=== PATIENT | male | born 1960 | race Caucasian/White ===

== ENCOUNTER 2020-11-07 11:50 | Emergency (ER) | payer MEDICAID, SELFPAY ==
--- NOTE | ~2020-11-07 | CT_ITS ---
EXAMINATION: CT ABDOMEN AND PELVIS WITH CONTRAST CLINICAL INFORMATION: Right upper quadrant and right lower quadrant pain COMPARISON: None TECHNIQUE: Multidetector volumetric images were obtained from the superior aspect of the liver through the pubic symphysis following administration 85 mL of Omnipaque 350 intravenous contrast. Sagittal and coronal reformatted images were obtained on the technologist's workstation. Oral contrast: None This CT examination was performed using dose optimization techniques as appropriate, variously including the following: *Automated exposure control *Adjustment of mA and/or kV according to patient size (this includes techniques or standardized protocols for targeted exams where dose is matched to indication/reason for exam; i.e. extremities or head) *Use of iterative reconstruction technique DLP: 559 mGy-cm FINDINGS: LUNG BASES: The visualized lung bases are unremarkable. LIVER, GALLBLADDER, AND BILIARY TREE: The liver has a lobular contour with the appearance of hepatic cirrhosis. There are some regions of diminished density present which could represent regions of scarring however lesions of other etiology not excluded. There is also noted to be a large soft tissue mass involving the left lobe measuring approximately 9.3 x 8.8 cm in size and in a patient with cirrhosis. Recent suspicious for this to represent hepatocellular carcinoma and other regions could represent multifocal disease. MRI or ultrasound would be of help in further evaluation of this finding as this could possibly represent a large hemangioma. Cholelithiasis is present. There is fluid around the gallbladder as well as gallbladder wall thickening however there is also some free fluid seen around the liver and in the pelvis which may be related to cirrhosis. Acute cholecystitis cannot be excluded on this imaging study. PANCREAS: Unremarkable. SPLEEN: Spleen is prominent at approximately 13 cm in vertical length. ADRENAL GLANDS: Unremarkable. KIDNEYS AND URETERS: The kidneys are normal in size, shape, and attenuation. No hydronephrosis, hydroureter, or calculi seen. No perinephric stranding. There is a subcentimeter cyst seen lower pole of the left kidney. BLADDER: Unremarkable. GASTROINTESTINAL TRACT: No free air is identified. There is a small amount of free fluid seen. No dilated loops of large or small bowel are evident. There is mild sigmoid diverticulosis without evidence of acute diverticulitis. The appendix appears unremarkable with gas within it. ABDOMINAL WALL: No significant hernia is appreciated. LYMPH NODES: There are numerous prominent mesenteric lymph nodes present. These measure up to approximately 9 mm in short axis. VASCULAR: Portal vein is patent. No abdominal aortic aneurysm. Portal varices are present PELVIC VISCERA: Prostate gland is enlarged. OSSEOUS STRUCTURES: No suspicious destructive bony lesions identified. Degenerative disc disease L5-S1. CT/CT abdomen pelvis w con IMPRESSION: Hepatic cirrhosis with evidence of portal hypertension. Hepatic mass as well as other regions of nonmass increased in low density. Above findings could be related to multifocal hepatocellular carcinoma. Fluid around the gallbladder with question gallbladder wall thickening but in a cirrhotic patient with some ascites present. Its difficult to tell whether this may be related to acute cholecystitis or be cirrhosis. Cholelithiasis is present. Splenomegaly.
[2020-11-07 12:01] VITALS: BP 164/90; PULSE 86; RESP 18; TEMP 36.9; O2SAT 94; BMI 25.8
--- NOTE | 2020-11-07 12:26 | ECG_ITS ---
Test Reason : EPIGASTRIC PAIN Blood Pressure : / mmHG Vent. Rate : 070 BPM Atrial Rate : 070 BPM P-R Int : 152 ms QRS Dur : 096 ms QT Int : 402 ms P-R-T Axes : 053 046 024 degrees QTc Int : 434 ms Normal sinus rhythm Normal ECG No previous ECGs available Referred By: Christina Rodrigues Electronically Signed By:DANYELL BEAR
--- NOTE | 2020-11-07 12:32 | ED_ITS ---
HPI - Abdominal Pain General Chief Complaint: Abdominal Pain Stated Complaint: abd pain Time Seen by Provider: 11/07/20 12:00 Source: patient Mode of arrival: ambulatory Limitations: no limitations History of Present Illness HPI narrative: 60-year-old male with a past medical history of substance abuse, anemia, hepatitis-C status post treatment, liver cirrhosis, hypertension here with complaints of abdominal pain. The patient tells me that he does have chronic abdominal pain in his ?liver? taken. He tells me that he smokes marijuana and this helps with his pain. However 2 days ago after eating a chicken sandwich he had worsened pain in the right upper quadrant which was very severe for several hours with associated nausea. The pain improved however is now intermittent since initial episode. It is worsened with movement, deep breathing, palpation. No nausea or vomiting today. No fevers, chills, kristal rrhea, constipation, urinary symptoms. Denies black or bloody stools. He tells me he has not seen a PCP in several years d/t moving here from [place] and then the pandemic making obtaining a new PCP very difficult for patient. Denies current substance use. No alcohol use. Related Data Previous Rx's Medication Instructions Recorded amlodipine [Norvasc] 5 mg PO DAILY #10 tab 11/07/20 Allergies Allergy/AdvReac Type Severity Reaction Status Date / Time No Known Allergies Allergy Verified 11/07/20 12:26 Review of Systems Review of Systems Yes all other systems are reviewed and are negative Constitutional: Reports no additional constitutional complaints, Denies body ache(s), Denies chills, Denies fever(s), Denies headache(s) and Denies weakness Eyes: Reports no additional eye complaints and Denies change in vision Reports system reviewed and no additional complaints, except as documented, Denies dizziness, Denies headache(s), Denies nasal congestion, Denies nasal discharge and Denies neck pain Cardiovascular: Reports no additional cardiovascular complaints, Denies chest pain, Denies leg edema and Denies dyspnea Respiratory: Reports no additional respiratory complaints, Denies cough and Denies dyspnea Gastrointestinal: Reports no additional gastrointestinal complaints, Reports abdominal pain, Denies melena, Denies hematochezia, Denies diarrhea, Reports nausea and Denies vomiting Genitourinary: Denies urinary incontinence Musculoskeletal: Reports no additional musculoskeletal complaints, Denies back pain, Denies arthralgias, Denies joint swelling, Denies neck pain, Denies numbness and Denies tingling Skin/Breast: Reports system reviewed and no additional complaints, except as docu and Denies rash Reports system reviewed and no additional complaints, except as documented, Denies Abnormal speech present, Denies dizziness, Denies headache(s), Denies numbness, Denies tingling and Denies weakness Physical Exam Vital Signs: Vital Signs: Last Vital Signs Temp 98.5 F 11/07/20 12:01 Pulse 63 11/07/20 14:01 Resp 16 11/07/20 14:01 BP 158/80 H 11/07/20 14:01 Pulse Ox 98 11/07/20 14:01 Body Mass Index 25.8 Const: General: cooperative, healthy appearing, comfortable and no acute distress Orientation/consciousness: patient oriented x3 Limitations: no limitations HENMT: Head: Yes normal to inspection Ears: hearing grossly normal bilaterally General nose exam: Normal external nose present Face and sinus: Yes normal facial exam Mouth: Normal oral and palatal mucosa present Throat: Yes posterior oropharynx normal Eyes: General: appearance normal, both eyes and all related structures Pupils: Equal, round and reactive pupils present Neck: Neck: Yes normal visual inspection Chest: Chest palpation & inspection: normal inspection of the chest Resp: Effort & Inspection: normal respiratory effort Auscultation: clear to auscultation bilaterally Cardio: Rate: regular rate Rhythm: regular rhythm Peripheral pulses: Peripheral pulses 2+ throughout GI: Inspection: Yes normal to inspection Palpation (GI): Soft to palpation and Tenderness to palpation present (GI) (Right upper and right lower quadrant with no rebound or guarding) Auscultation: normal bowel sounds Back/Spine/Pelvis: Thoracic/Lumbar Spine: thoracic and lumbar spine normal to inspection Skin: General skin exam: no rashes or lesions noted Neuro: General: patient oriented x3, no focal motor deficits and normal sensation to monofilament Cranial nerves: Yes Equal, round and reactive pupils present Cognition (Neuro): normal cognition Speech: No Abnormal speech present Gait exam (Neuro): Normal gait present Motor exam (neuro): 5/5 motor strength present throughout Extrem: General: Yes normal to inspection Course Course Course Narrative: 60-year-old male here with acute on chronic right upper a bdominal pain for the last 2 days with associated nausea. Will need labs, UA, imaging. 1540-labs are consistent with a patient with liver cirrhosis (thombocytopenia, elevated INR). CT shows liver cirrhosis with evidence of portal hypertension, hepatic mass as well as areas of non mass which may be multifocal hepatocellular carcinoma, fluid around the gallbladder with question gallbladder wall t hickening which may be related to cholecystitis port secondary to cirrhosis. Gallstones are present. Patient continues to have abdominal pain on the right side. Will discuss with both surgery. 1545-D/w with Dr Garcia from surgery. He will come evaluate the patient at the bedside. 1630-Seen by Dr Garcia from surgery who tells me patient can be worked up outpatient. Less likely cholecystitis however patient will need workup for the liver mass which can be done by IR. However, does not have PCP. Will ask CM for assistance with this. 1730-case management is able to get the patient an appointment for next Wednesday. All this information was given to the patient and his family. Patient was noted to be mildly hypertensive and asymptomatic. He tells me he was taking a medication until about a year ago and would like to restart the medication. Will give small trial of Norvasc and recommend the patient keep his appointment on Wednesday for a follow-up blood pressure. Patient tolerated a sandwich and aiden patrick prior to discharge. Reviewed worrisome signs and symptoms and when to return to the emergency department. Comfortable discharge home. MDM - Abdominal Pain MDM Narrative Medical decision making narrative: Cholecystitis, cholelithiasis, , liver cirrhosis, pancreatitis, gastritis Medical Records Attestation: I reviewed the patient's medical records. Lab Data Attestation: I reviewed the patient's lab results. Result diagrams: 11/07/20 12:45 11/07/20 12:45 Labs: Lab Results 11/07/20 11/07/20 11/07/20 Range/Units 12:45 12:45 12:45 WBC 4.0 L (4.8-10.8) X10*3/uL RBC 4.33 L (4.60-5.80) X10*6/uL Hgb 10.6 L (14.0-18.0) g/dl Hct 34.0 L (42-52) % MCV 78.5 L (80-98) fL MCH 24.5 L (27.0-33.0) pg MCHC 31.2 (31.0-36.0) g/dl RDW 17.7 H (11.0-16.0) % Plt Count 128 L (160-400) X10*3/uL MPV 9.9 (9.4-12.4) fL Immature Gran % (Auto) 0.3 (0.0-0.4) % Neut % (Auto) 67.0 (45-73) % Lymph % (Auto) 16.5 L (20-40) % [place] % (Auto) 11.6 H (2-11) % Eos % (Auto) 4.1 H (0-4) % Baso % (Auto) 0.5 (0-2) % Lymph # (Auto) 0.7 L (1.2-4.9) X10*3/uL [place] # (Auto) 0.5 (0.1-1.2) X10*3/uL Eos # (Auto) 0.2 (0.0-0.4) X10*3/uL Baso # (Auto) 0.0 (0.0-0.2) X10*3/uL Abs Immat Gran (auto) 0.01 (0.00-0.03) X10*3/uL Absolute Neuts (auto) 2.7 (2.0-8.3) X10*3/uL Absolute Nucleated RBC 0.000 (0.0-0.012) X10*3/uL Nucleated RBC % (auto) 0.0 (0.0-0.2) /100WBC Smear Tech's Comments VERIFIED PT 13.8 H (10.8-13.0) SEC INR 1.2 H (0.9-1.1) Sodium 140 (135-145) mmol/L Potassium 4.1 (3.3-5.1) mmol/L Chloride 105 (96-108) mmol/L Carbon Dioxide 27 (22-29) mmol/L Anion Gap 12 (12-20) BUN 16 (9-16) mg/dL Creatinine 0.86 (0.5-1.4) mg/dL Estim Creat Clear Calc 82.4 Estimated GFR > 60 Random Glucose 108 (60-115) mg/dL Calcium 9.1 (8.4-10.2) mg/dL Magnesium 2.1 (1.6-2.6) mg/dL Total Bilirubin 0.8 (0.0-1.0) mg/dL Direct Bilirubin 0.4 (0.0-0.5) mg/dL AST 49 H (5-37) U/L ALT 68 H (0-40) U/L Alkaline Phosphatase 124 H (39-117) U/L Total Protein 7.7 (6.5-8.0) g/dL Albumin 4.2 (3.5-5.0) g/dL Lipase (8-78) U/L Urine Color Urine Appearance Urine pH (5.0-8.0) Ur Specific [place] (1.005-1.025) Urine Protein (NEG-TRACE) MG/DL Urine Glucose (UA) (NEG) MG/DL Urine Ketones (NEG) MG/DL Urine Blood (NEG) Urine Nitrite (NEG) Ur Leukocyte Esterase (NEG) 11/07/20 11/07/20 Range/Units 12:45 14:02 WBC (4.8-10.8) X10*3/uL RBC (4.60-5.80) X10*6/uL Hgb (14.0-18.0) g/dl Hct (42-52) % MCV (80-98) fL MCH (27.0-33.0) pg MCHC (31.0-36.0) g/dl RDW (11.0-16.0) % Plt Count (160-400) X10*3/uL MPV (9.4-12.4) fL Immature Gran % (Auto) (0.0-0.4) % Neut % (Auto) (45-73) % Lymph % (Auto) (20-40) % Dent % (Auto) (2-11) % Eos % (Auto) (0-4) % Baso % (Auto) (0-2) % Lymph # (Auto) (1.2-4.9) X10*3/uL [place] # (Auto) (0.1-1.2) X10*3/uL Eos # (Auto) (0.0-0.4) X10*3/uL Baso # (Auto) (0.0-0.2) X10*3/uL Abs Immat Gran (auto) (0.00-0.03) X10*3/uL Absolute Neuts (auto) (2.0-8.3) X10*3/uL Absolute Nucleated RBC (0.0-0.012) X10*3/uL Nucleated RBC % (auto) (0.0-0.2) /100WBC Smear Tech's Comments PT (10.8-13.0) SEC INR (0.9-1.1) Sodium (135-145) mmol/L Potassium (3.3-5.1) mmol/L Chloride (96-108) mmol/L Carbon Dioxide (22-29) mmol/L Anion Gap (12-20) BUN (9-16) mg/dL Creatinine (0.5-1.4) mg/dL Estim Creat Clear Calc Estimated GFR Random Glucose (60-115) mg/dL Calcium (8.4-10.2) mg/dL Magnesium (1.6-2.6) mg/dL Total Bilirubin (0.0-1.0) mg/dL Direct Bilirubin (0.0-0.5) mg/dL AST (5-37) U/L ALT (0-40) U/L Alkaline Phosphatase (39-117) U/L Total Protein (6.5-8.0) g/dL Albumin (3.5-5.0) g/dL Lipase 15 (8-78) U/L Urine Color YELLOW Urine Appearance CLEAR Urine pH 6.5 (5.0-8.0) Ur Specific [place] 1.020 (1.005-1.025) Urine Protein NEG (NEG-TRACE) MG/DL Urine Glucose (UA) NEG (NEG) MG/DL Urine Ketones NEG (NEG) MG/DL Urine Blood NEG (NEG) Urine Nitrite NEG (NEG) Ur Leukocyte Esterase NEG (NEG) Imaging Data CT scan - abdomen: Attestation: I personally reviewed and interpreted this imaging study as follows: Radiologist's impression: Hepatic cirrhosis with evidence of portal hypertension. Hepatic mass as well as other regions of nonmass increased in low density. Above findings could be related to multifocal hepatocellular carcinoma. Fluid around the gallbladder with question gallbladder wall thickening but in a cirrhotic patient with some ascites present. Its difficult to tell whether this may be related to acute cholecystitis or be cirrhosis. Cholelithiasis is present. Splenomegaly. ECG Data Attestation: I personally reviewed and interpreted this ECG as follows: ECG interpretation date: 11/07/20 ECG interpretation time: 12:37 Interpretation: NSR, normal pr, normal qrs, normal qtc Discharge Plan Discharge Clinical Impression: Liver mass, Hypertension Patient Disposition: Home, Self-Care Instructions: Hypertension (ED) Additional Instructions: Your CT scan shows a mass in your liver. This will need a biopsy as soon as possible to determine cause You have an appointment at 130pm on Saturday 11/11 with Marc Hernandez PA-C at [address] on [address] right in [facility]. Please arrive 15 minutes early. Your blood pressure was high today, We are starting you on a low dose of norvasc for this. Prescriptions: New amlodipine [Norvasc] 5 mg tablet 5 mg PO DAILY Qty: 10 RF: 0 Interventions: ED Discharge Assessment Last Done: 11/07/20 18:01 Discharge Date/Time: 11/07/20 18:02 [facility] Past Medical History Attestation statement: The following information was validated with the patient. Source: old records reviewed and nursing notes reviewed Medical History (Updated 11/07/20 @ 17:45 by Christina Rodrigues NP) Anemia Hepatitis C Hypertension Liver cirrhosis Liver mass
[2020-11-07 12:56] LABS: Basophils Percent Auto 0.5 % (0-2); Eosinophils Absolute Auto 0.2 X10*3/uL (0.0-0.4); Eosinophils Percent Auto 4.1 % (0-4); Hemoglobin 10.6 g/dl (14.0-18.0); Imm Gran Abs Auto 0.01 X10*3/uL (0.00-0.03); Imm Gran Pct Auto 0.3 % (0.0-0.4); Lymphocytes Absolute Auto 0.7 X10*3/uL (1.2-4.9); Lymphocytes Percent Auto 16.5 % (20-40); MANUAL DIFF FLAG SCAN; Mean Corpuscular HGB Conc 31.2 g/dl (31.0-36.0); Mean Corpuscular Hemoglobin 24.5 pg (27.0-33.0); Mean Corpuscular Volume 78.5 fL (80-98); Mean Platelet Volume 9.9 fL (9.4-12.4); Monocytes Absolute Auto 0.5 X10*3/uL (0.1-1.2); Monocytes Percent Auto 11.6 % (2-11); Neutrophils Absolute Auto 2.7 X10*3/uL (2.0-8.3); Platelet Count 128 X10*3/uL (160-400); Red Blood Count 4.33 X10*6/uL (4.60-5.80); Red Cell Distribution Width 17.7 % (11.0-16.0); SCAN SMEAR FLAG 1
[2020-11-07 13:04] LABS: INTERNATIONAL NORM RATIO 1.2 (0.9-1.1); Prothrombin Time 13.8 SEC (10.8-13.0)
[2020-11-07 13:19] LABS: Alanine Aminotransferase 68 U/L (0-40); Albumin Level 4.2 g/dL (3.5-5.0); Alkaline Phosphatase 124 U/L (39-117); Anion Gap 12 (12-20); Aspartate Amino Transferase 49 U/L (5-37); Bilirubin Direct 0.4 mg/dL (0.0-0.5); Bilirubin Total 0.8 mg/dL (0.0-1.0); Blood Urea Nitrogen 16 mg/dL (9-16); Calcium 9.1 mg/dL (8.4-10.2); Carbon Dioxide 27 mmol/L (22-29); Chloride 105 mmol/L (96-108); Creatinine Clr Calc Pharmacy 82.4; Estimated Glomerular Filt Rate > 60; Glucose Random 108 mg/dL (60-115); Lipase 15 U/L (8-78); Magnesium 2.1 mg/dL (1.6-2.6); Potassium 4.1 mmol/L (3.3-5.1); Sodium 140 mmol/L (135-145); Total Protein 7.7 g/dL (6.5-8.0)
[2020-11-07 13:24] LABS: SLIDE REVIEW VERIFIED
[2020-11-07 14:01] VITALS: BP 158/80; PULSE 63; RESP 16; O2SAT 98
[2020-11-07 14:20] LABS: Glucose Urine UA NEG (NEG); Leukocyte Esterase Urine NEG (NEG); Nitrite Urine NEG (NEG); PH 6.5 (5.0-8.0); Urine Blood NEG (NEG); Urine Ketones NEG (NEG); Urine Protein NEG (NEG-TRACE)
[2020-11-07 14:23] LABS: Appearance Urine CLEAR; Color Urine YELLOW
--- NOTE | 2020-11-07 17:13 | PM.CNGS ---
History of Present Illness Consult details Consult date: 11/07/20 Narrative: 60-year-old male with history of liver cirrhosis, hepatitis C, referred to me because of an abnormal CAT scan of the liver. He says he has had chronic pain mostly on the right side of his abdomen for years now. He says he was diagnosed to have liver cirrhosis about almost 30 years ago. He has been having periodic pain at that area so long. He had moved from [place] to [facility] recently. He says he has not seen any primary care physician in a long time because of the pandemic. He has not established a primary care physician here as well. He says that he has had episodes of pain again mostly on the right side especially with deep breathing. He had a CAT scan showing a tumor at the liver. I was consulted because of this. Review of Systems Constitutional: Constitutional: Denies chills and Denies fever(s) Cardiovascular: Cardiovascular: Denies chest pain, Denies dyspnea and Denies dyspnea on exertion Respiratory: Respiratory: Denies cough, Denies dyspnea and Denies dyspnea on exertion Gastrointestinal: Gastrointestinal: Denies hematochezia and Denies change in bowel habits Genitourinary: Genitourinary: Denies hematuria and Denies difficulty urinating Musculoskeletal: Musculoskeletal: Denies back pain and Denies limited range of motion Neurologic: Denies focal weakness and Denies convulsions Psychiatric: Psychiatric: Denies depression and Denies mood swings COUNT INCLUDES THE [facility] Past Medical History Medical History (Updated 11/07/20 @ 17:17 by Kirby Garcia MD) Anemia Hepatitis C Hypertension Liver cirrhosis Liver mass Social History Social History Advance Directives: No Advance Directives Information Provided: No Meds Allergies Allergy/AdvReac Type Severity Reaction Status Date / Time No Known Allergies Allergy Verified 11/07/20 12:26 Physical Exam Vital Signs: Vital Signs: Last Vital Signs Temp 98.5 F 11/07/20 12:01 Pulse 63 11/07/20 14:01 Resp 16 11/07/20 14:01 BP 158/80 H 11/07/20 14:01 Pulse Ox 98 11/07/20 14:01 Body Mass Index 25.8 Const: Other: Ambulating, appears comfortable Resp: Effort & Inspection: normal respiratory effort Cardio: Rhythm: regular rhythm GI: Other: Some mild tenderness on the right side the abdomen Palpation (GI): not soft and no guarding Extrem: Left lower extremity: no edema Results Labs Result diagrams: 11/07/20 12:45 11/07/20 12:45 Labs: Abnormal lab results 11/07/20 11/07/20 11/07/20 Range/Units 12:45 12:45 12:45 WBC 4.0 L (4.8-10.8) X10*3/uL RBC 4.33 L (4.60-5.80) X10*6/uL Hgb 10.6 L (14.0-18.0) g/dl Hct 34.0 L (42-52) % MCV 78.5 L (80-98) fL MCH 24.5 L (27.0-33.0) pg RDW 17.7 H (11.0-16.0) % Plt Count 128 L (160-400) X10*3/uL Lymph % (Auto) 16.5 L (20-40) % [place] % (Auto) 11.6 H (2-11) % Eos % (Auto) 4.1 H (0-4) % Lymph # (Auto) 0.7 L (1.2-4.9) X10*3/uL PT 13.8 H (10.8-13.0) SEC INR 1.2 H (0.9-1.1) AST 49 H (5-37) U/L ALT 68 H (0-40) U/L Alkaline Phosphatase 124 H (39-117) U/L Short CBC 11/07/20 Range/Units 12:45 WBC 4.0 L (4.8-10.8) X10*3/uL Hgb 10.6 L (14.0-18.0) g/dl Hct 34.0 L (42-52) % Plt Count 128 L (160-400) X10*3/uL BMP 11/07/20 12:45 Sodium 140 Potassium 4.1 Chloride 105 Carbon Dioxide 27 BUN 16 Creatinine 0.86 Calcium 9.1 Liver Function 11/07/20 Range/Units 12:45 Total Bilirubin 0.8 (0.0-1.0) mg/dL Direct Bilirubin 0.4 (0.0-0.5) mg/dL AST 49 H (5-37) U/L ALT 68 H (0-40) U/L Alkaline Phosphatase 124 H (39-117) U/L Albumin 4.2 (3.5-5.0) g/dL Urine 11/07/20 Range/Units 14:02 Urine Color YELLOW Urine Appearance CLEAR Urine pH 6.5 (5.0-8.0) Ur Specific [place] 1.020 (1.005-1.025) Urine Protein NEG (NEG-TRACE) MG/DL Urine Glucose (UA) NEG (NEG) MG/DL All other labs normal. Imaging Abdomen CT scan report/results: report reviewed and image reviewed CT scan - pelvis: report reviewed and image reviewed Assessment and Plan (1) Liver mass: Status: Acute His CAT scan shows a 9 x 8 cm liver mass that seems to be highly suggestive of a hepatocellular carcinoma. I explained this to him. I told him that the 1st step would be a CT biopsy of this lesion. All these may be done as an outpatient as he looks comfortable. Unfortunately, he does not have any primary care physician. He however says he is willing to be established to do 1 and wants to proceed with workup as an outpatient. I therefore discussed this with he minister of religion in the ED as well as with the emergency room staff about setting him up for a primary care physician so that he can be followed. It is important for him to undergo biopsy for diagnostic purposes so that he can be treated and managed accordingly. The patient again says he was willing to do this as an outpatient and is looking forward to being established with a new PCP. Otherwise, his CAT scan did not show any other acute intra-abdominal issues.
--- NOTE | 2020-11-07 17:45 | MHC.CM.ED ---
CM was asked to arrange a PCP appointment for this patient SIMIN. Liver mass, needs IR biopsy. Pt desires outpatient. Appointment made with Marc Hernandez at [facility] for November 11 at 1:30. Office asked for ED H&P, CT scan report and General Surgery consult note to be faxed to [phone]. Confirmation obtained. Christina Parsons and Dr. Garcia aware of appointment.
== END 2020-11-07 18:02 | disposition home or self-care (01) ==
PROVIDERS: Nurse Practitioner Family; Emergency Provider Emergency Medicine
DX: R16.0 Hepatomegaly, not elsewhere classified (principal); I10 Essential (primary) hypertension; R10.11 Right upper quadrant pain; K74.60 Unspecified cirrhosis of liver; F19.10 Other psychoactive substance abuse, uncomplicated; F12.90 Cannabis use, unspecified, uncomplicated; D64.9 Anemia, unspecified; Z86.19 Personal history of other infectious and parasitic diseases
CPT/HCPCS: 36415; 74177; 80048; 80076; 81003; 83690; 83735; 85025; 85610; 93005; 99283; 99284; Q9967

== ENCOUNTER 2020-11-21 10:12 | Emergency (ER) | payer BC, SELFPAY ==
--- NOTE | ~2020-11-21 | US_ITS ---
EXAMINATION: US ABDOMEN LIMITED CLINICAL INFORMATION: Question portal vein thrombus on CT. Question cortical cystitis on CT.. COMPARISON: CT scan of November 21, 2020 TECHNIQUE: Ultrasound of the liver, gallbladder, and portal vein. FINDINGS: LIVER: The liver is lobulated and has a coarse echotexture as well as having a mass within the right lobe measuring approximately 10.4 x 10.0 x 10.2 cm in size which again in a cirrhotic patient may represent hepatocellular carcinoma. The main portal vein is patent with hepatopedal flow. No abnormal filling defect is identified with ultrasound. There is no intrahepatic biliary duct dilatation seen. GALLBLADDER: Gallbladder wall is thickened to 5 mm in diameter and there is fluid within the wall however this may be related to the patient's hepatic cirrhosis and ascites rather than acute cholecystitis. Clinical correlation suggested. No tenderness to palpation was elicited with the transducer while scanning over the gallbladder. COMMON BILE DUCT: Normal in caliber measuring 0.6 cm in diameter. US/US abdomen limited IMPRESSION: Hepatopedal flow within patent main portal vein without evidence of thrombosis. Hepatic cirrhosis with right lobe mass as described and as imaged on previous CT scans. Gallbladder wall thickening with fluid in the wall with no tenderness to palpation overlying this region. Finding could be related to patient's hepatic cirrhosis and free fluid rather than acute cholecystitis.
--- NOTE | ~2020-11-21 | CT_ITS ---
EXAMINATION: CT ABDOMEN AND PELVIS WITH CONTRAST CLINICAL INFORMATION: Severe right upper quadrant pain. COMPARISON: CT 11/07/2020 TECHNIQUE: Multidetector volumetric images were obtained from the superior aspect of the liver through the pubic symphysis following administration 85 mL of Omnipaque 350 intravenous contrast. Sagittal and coronal reformatted images were obtained on the technologist's workstation. Oral contrast: No This CT examination was performed using dose optimization techniques as appropriate, variously including the following: *Automated exposure control *Adjustment of mA and/or kV according to patient size (this includes techniques or standardized protocols for targeted exams where dose is matched to indication/reason for exam; i.e. extremities or head) *Use of iterative reconstruction technique DLP: 610 mGy-cm FINDINGS: LUNG BASES: The visualized lung bases are unremarkable. LIVER, GALLBLADDER, AND BILIARY TREE: As seen on the recent CT scan, is lobulated contour of the liver, indicative of liver cirrhosis. There are areas of low-attenuation of the liver, which may be related to fibrosis, but underlying lesions are not excluded. Redemonstrated is a large solid slightly heterogeneous mass in the right lobe of the liver. This measures 10.4 x 10 cm, appearing larger as compared to prior measurements of 9.2 x 8.9 cm based on today's measurements. Primary differential consideration is for a hepatocellular carcinoma. There is apparent filling defect in the main portal vein, raising the possibility of thrombosis. No intrahepatic biliary duct dilatation. Gallstones present. Small fluid and inflammatory changes around the gallbladder, which could be reactive to the cirrhosis, or represent acute cholecystitis. PANCREAS: Unremarkable. SPLEEN: Prominent measuring 13 cm craniocaudal. ADRENAL GLANDS: Unremarkable. KIDNEYS AND URETERS: The kidneys are normal in size, shape, and attenuation. No hydronephrosis, hydroureter, or calculi seen. No perinephric stranding. Subcentimeter probable cyst in the lower pole left kidney. BLADDER: Underdistended limiting evaluation. There is mild wall thickening, which may be related to underdistention versus cystitis. GASTROINTESTINAL TRACT: No dilated small or large bowel loops are seen. The stomach is nondistended precluding evaluation. Apparent wall thickening of the stomach may be related to lack of distention. Mild sigmoid diverticulosis without evidence of diverticulitis. Small ascites in the abdomen and pelvis, slightly increased from previous. No free air is seen. ABDOMINAL WALL: Small fat-containing umbilical hernia. LYMPH NODES: Multiple prominent lymph nodes in the mesentery and retroperitoneum, larger measuring 9 mm. VASCULAR: Normal caliber aorta. Apparent filling defect in the main portal vein, which could represent thrombosis. PELVIC VISCERA: Enlarged prostate. OSSEOUS STRUCTURES: L5-S1 disc degenerative changes. No acute or destructive bony process. CT/CT abdomen pelvis w con IMPRESSION: 1. Hepatic cirrhosis. 2. Large solid heterogeneous right lobe liver lesion measuring 10.4 x 10 cm, which appears increased in size as compared to the recent study. Primary differential consideration is for hepatocellular carcinoma. Multiple additional areas of low attenuation as seen in the liver, and additional lesions cannot be excluded. Recommend further evaluation with MRI. 3. Apparent filling defect in the main portal vein, from possible thrombosis. Further evaluation with ultrasound as clinically warranted. 4. Cholelithiasis. There is mild wall thickening and pericholecystic fluid. This may be reactive to the cirrhosis and ascites. Acute cholecystitis cannot be excluded. 5. Small ascites, slightly increased from previous. 6. Additional findings and details, as above.
[2020-11-21 10:19] VITALS: BP 158/91; PULSE 78; RESP 24; TEMP 37.1; O2SAT 98; BMI 24.4
--- NOTE | 2020-11-21 10:38 | ECG_ITS ---
Test Reason : ABD PAIN Blood Pressure : / mmHG Vent. Rate : 067 BPM Atrial Rate : 067 BPM P-R Int : 156 ms QRS Dur : 096 ms QT Int : 430 ms P-R-T Axes : 060 057 040 degrees QTc Int : 454 ms Normal sinus rhythm Normal ECG When compared with ECG of 07-NOV-2020 12:37, No significant change was found Referred By: Mila Miller Electronically Signed By:DANYELL BEAR
--- NOTE | 2020-11-21 10:46 | ED.ABDPAIN ---
HPI - Abdominal Pain General Chief Complaint: Abdominal Pain Stated Complaint: ABD PAIN,JAUNDICE,SOB Time Seen by Provider: 11/21/20 10:21 Source: patient, EMS and old records reviewed Mode of arrival: EMS Limitations: no limitations History of Present Illness HPI narrative: 60 yo male with hx of hepatitis C, liver cirrhosis with liver massses concerning for HCC just started care for workup at the end of October 16 with PCP establishment as well as surgical consult to r/o acute GB pathology - has bouts of severe RUQ pain after coughing or vomiting, another episode today of RUQ pain and n/v - takes THC as needed, states this has happened before MD elicited complaint: abdominal pain Pertinent past history: other (cirrhosis and liver masses) Onset (ago): hour(s) (just [employer]) Pain Consistency: constant Location: RUQ Severity: similar to previous episodes Quality: stabbing Radiation: other (R shoulder) Migration to: no migration Exacerbating factors: vomiting and movement Relieving factors: nothing Context: history of similar episodes Associated symptoms: nausea, vomiting and diarrhea Related Data Previous Rx's Medication Instructions Recorded amlodipine [Norvasc] 5 mg PO DAILY #10 tab 11/07/20 ondansetron 4 mg PO Q8H PRN #20 tab 11/21/20 oxycodone 10 mg PO Q6H PRN #20 tab 11/21/20 Allergies Allergy/AdvReac Type Severity Reaction Status Date / Time Penicillins Allergy Severe Rash Verified 11/11/20 13:38 Review of Systems Review of Systems Constitutional : No Weight loss, No Fever, No Chills ENT/Mouth : No sore throat, No Rhinorrhea Eyes: No Swelling, No Redness Cardiovascular : No Chest Pain, No SOB, NoEdema Respiratory : No Cough, No Sputum, No Wheezing Gastrointestinal : Positive Nausea, Positive Vomiting, positive Diarrhea, positive abdominal Pain, No Hematochezia, No Melena Genitourinary : No Dysuria, No Urinary Frequency, No Hematuria, No Urgency Musculoskeletal : No joint pain, No Myalgias, No Joint Swelling Skin : No Skin Lesions, No rash Neuro : No Weakness, No Numbness, No Dizziness, No Headache Psych : No Anxiety/Panic, No Depression Heme/Lymph: No Bruising, No Lymphadenopathy Endocrine : No Polyuria, No Polydipsia All other systems reviewed and are negative. Physical Exam Vital Signs: Vital Signs: Last Vital Signs Temp 98.8 F 11/21/20 10:19 Pulse 68 11/21/20 14:59 Resp 18 11/21/20 14:59 BP 120/75 11/21/20 14:59 Pulse Ox 94 11/21/20 14:59 Body Mass Index 24.4 Appearance: Alert. Oriented X3. No acute distress. Eyes: Pupils equal, round and reactive to light. scleral icterus ENT: Pharynx normal. Neck: Normal inspection. Neck supple. CVS: Normal heart rate and rhythm. Pulses normal. Respiratory: No respiratory distress. Breath sounds normal. Abdomen: Soft and moderate RUQ pain with guarding no rebound Skin: Skin warm and dry. Normal skin color. Normal skin turgor. Extremities: No lower extremity edema. No calf ttp Neuro: Oriented X 3. No motor deficit. No sensory deficit. Course Course Course Narrative: US ordered to fully evaluate GB as well as possibility of PV thrombus workup stable, US negative, doubt cholecysitis, has outpatient follow up will send home with PO pain medications MDM - Abdominal Pain MDM Narrative Medical decision making narrative: 60 yo male with cirrhosis, hepatitis C, bouts of chronic abdominal pain, liver massess presumed HCC just getting established in care here has next appointment on 11/23 comes in with c/o RUQ pain as before associated with n/v/d - at this time will obtain labs, CT scan for rupture of mass/PV thrombosis - IV dilaudid for pain, dispo per results and findings. Lab Data Result diagrams: 11/21/20 11:14 11/21/20 11:12 Labs: Lab Results 11/21/20 11/21/20 11/21/20 Range/Units 11:12 11:12 11:13 WBC (4.8-10.8) X10*3/uL RBC (4.60-5.80) X10*6/uL Hgb (14.0-18.0) g/dl Hct (42-52) % MCV (80-98) fL MCH (27.0-33.0) pg MCHC (31.0-36.0) g/dl RDW (11.0-16.0) % Plt Count (160-400) X10*3/uL MPV (9.4-12.4) fL Immature Gran % (Auto) (0.0-0.4) % Neut % (Auto) (45-73) % Lymph % (Auto) (20-40) % Schuyler % (Auto) (2-11) % Eos % (Auto) (0-4) % Baso % (Auto) (0-2) % Lymph # (Auto) (1.2-4.9) X10*3/uL Schuyler # (Auto) (0.1-1.2) X10*3/uL Eos # (Auto) (0.0-0.4) X10*3/uL Baso # (Auto) (0.0-0.2) X10*3/uL Abs Immat Gran (auto) (0.00-0.03) X10*3/uL Absolute Neuts (auto) (2.0-8.3) X10*3/uL Absolute Nucleated RBC (0.0-0.012) X10*3/uL Nucleated RBC % (auto) (0.0-0.2) /100WBC Smear Tech's Comments PT 13.3 H (10.8-13.0) SEC INR 1.1 (0.9-1.1) APTT 30.9 (24.1-38.0) SEC Sodium 138 (135-145) mmol/L Potassium 4.2 (3.3-5.1) mmol/L Chloride 102 (96-108) mmol/L Carbon Dioxide 26 (22-29) mmol/L Anion Gap 14 (12-20) BUN 15 (9-16) mg/dL Creatinine 0.81 (0.5-1.4) mg/dL Estim Creat Clear Calc 103.2 Estimated GFR > 60 Random Glucose 114 (60-115) mg/dL Lactic Acid 1.7 (0.5-2.0) mmol/L Calcium 9.2 (8.4-10.2) mg/dL Magnesium 2.0 (1.6-2.6) mg/dL Total Bilirubin 0.9 (0.0-1.0) mg/dL Direct Bilirubin 0.5 (0.0-0.5) mg/dL AST 54 H (5-37) U/L ALT 78 H (0-40) U/L Alkaline Phosphatase 127 H (39-117) U/L Ammonia (13-55) umol/L Total Protein 7.9 (6.5-8.0) g/dL Albumin 4.3 (3.5-5.0) g/dL Lipase (8-78) U/L COVID-19 (LIVIA) (Negative) COVID-19 Clin Com 11/21/20 11/21/20 11/21/20 Range/Units 11:13 11:14 11:14 WBC 5.3 (4.8-10.8) X10*3/uL RBC 4.64 (4.60-5.80) X10*6/uL Hgb 11.3 L (14.0-18.0) g/dl Hct 36.2 L (42-52) % MCV 78.0 L (80-98) fL MCH 24.4 L (27.0-33.0) pg MCHC 31.2 (31.0-36.0) g/dl RDW 17.8 H (11.0-16.0) % Plt Count 162 D (160-400) X10*3/uL MPV 9.8 (9.4-12.4) fL Immature Gran % (Auto) 0.4 (0.0-0.4) % Neut % (Auto) 75.0 H (45-73) % Lymph % (Auto) 12.4 L (20-40) % Schuyler % (Auto) 8.6 (2-11) % Eos % (Auto) 3.2 (0-4) % Baso % (Auto) 0.4 (0-2) % Lymph # (Auto) 0.7 L (1.2-4.9) X10*3/uL Schuyler # (Auto) 0.5 (0.1-1.2) X10*3/uL Eos # (Auto) 0.2 (0.0-0.4) X10*3/uL Baso # (Auto) 0.0 (0.0-0.2) X10*3/uL Abs Immat Gran (auto) 0.02 (0.00-0.03) X10*3/uL Absolute Neuts (auto) 3.9 (2.0-8.3) X10*3/uL Absolute Nucleated RBC 0.000 (0.0-0.012) X10*3/uL Nucleated RBC % (auto) 0.0 (0.0-0.2) /100WBC Smear Tech's Comments VERIFIED PT (10.8-13.0) SEC INR (0.9-1.1) APTT (24.1-38.0) SEC Sodium (135-145) mmol/L Potassium (3.3-5.1) mmol/L Chloride (96-108) mmol/L Carbon Dioxide (22-29) mmol/L Anion Gap (12-20) BUN (9-16) mg/dL Creatinine (0.5-1.4) mg/dL Estim Creat Clear Calc Estimated GFR Random Glucose (60-115) mg/dL Lactic Acid (0.5-2.0) mmol/L Calcium (8.4-10.2) mg/dL Magnesium (1.6-2.6) mg/dL Total Bilirubin (0.0-1.0) mg/dL Direct Bilirubin (0.0-0.5) mg/dL AST (5-37) U/L ALT (0-40) U/L Alkaline Phosphatase (39-117) U/L Ammonia (13-55) umol/L Total Protein (6.5-8.0) g/dL Albumin (3.5-5.0) g/dL Lipase 12 (8-78) U/L COVID-19 (LIVIA) Negative (Negative) COVID-19 Clin Com See Note 11/21/20 Range/Units 11:14 WBC (4.8-10.8) X10*3/uL RBC (4.60-5.80) X10*6/uL Hgb (14.0-18.0) g/dl Hct (42-52) % MCV (80-98) fL MCH (27.0-33.0) pg MCHC (31.0-36.0) g/dl RDW (11.0-16.0) % Plt Count (160-400) X10*3/uL MPV (9.4-12.4) fL Immature Gran % (Auto) (0.0-0.4) % Neut % (Auto) (45-73) % Lymph % (Auto) (20-40) % Schuyler % (Auto) (2-11) % Eos % (Auto) (0-4) % Baso % (Auto) (0-2) % Lymph # (Auto) (1.2-4.9) X10*3/uL Schuyler # (Auto) (0.1-1.2) X10*3/uL Eos # (Auto) (0.0-0.4) X10*3/uL Baso # (Auto) (0.0-0.2) X10*3/uL Abs Immat Gran (auto) (0.00-0.03) X10*3/uL Absolute Neuts (auto) (2.0-8.3) X10*3/uL Absolute Nucleated RBC (0.0-0.012) X10*3/uL Nucleated RBC % (auto) (0.0-0.2) /100WBC Smear Tech's Comments PT (10.8-13.0) SEC INR (0.9-1.1) APTT (24.1-38.0) SEC Sodium (135-145) mmol/L Potassium (3.3-5.1) mmol/L Chloride (96-108) mmol/L Carbon Dioxide (22-29) mmol/L Anion Gap (12-20) BUN (9-16) mg/dL Creatinine (0.5-1.4) mg/dL Estim Creat Clear Calc Estimated GFR Random Glucose (60-115) mg/dL Lactic Acid (0.5-2.0) mmol/L Calcium (8.4-10.2) mg/dL Magnesium (1.6-2.6) mg/dL Total Bilirubin (0.0-1.0) mg/dL Direct Bilirubin (0.0-0.5) mg/dL AST (5-37) U/L ALT (0-40) U/L Alkaline Phosphatase (39-117) U/L Ammonia 36 (13-55) umol/L Total Protein (6.5-8.0) g/dL Albumin (3.5-5.0) g/dL Lipase (8-78) U/L COVID-19 (LIVIA) (Negative) COVID-19 Clin Com ECG Data Attestation: I personally reviewed and interpreted this ECG as follows: ECG interpretation date: 11/21/20 ECG interpretation time: 12:18 Interpretation: Rate: 67 Rhythm: NSR Carson: normal Normal P waves. Normal CASEY. Normal QRS complex. ST T wave : normal , no ALIREZA qTC: normal prior studies: no acute ischemia The study has been interpreted contemporaneously by me. . Discharge Plan Discharge Clinical Impression: Liver mass Abdominal pain Qualifiers: Abdominal location: right upper quadrant Qualified Code(s): R10.11 - Right upper quadrant pain Patient Disposition: Home, Self-Care Instructions: Abdominal Pain (ED) Additional Instructions: return to ED for any worsening symptoms or concerns please make sure you get to your appointments Prescriptions: New ondansetron 4 mg tablet,disintegrating 4 mg PO Q8H PRN (Reason: nausea and vomiting) Qty: 20 RF: 0 oxycodone 10 mg tablet 10 mg PO Q6H PRN (Reason: pain) Qty: 20 RF: 0 No Action amlodipine [Norvasc] 5 mg tablet 5 mg PO DAILY Qty: 10 RF: 0 PMFSH Past Medical History Attestation statement: The following information was validated with the patient. Medical History Anemia Hepatitis C Hypertension Liver cirrhosis Liver mass Liver mass Surgical History No history of previous surgery Family History Family History (Updated 11/11/20 @ 13:39 by Lucy Stone) Mother No problems noted. Father No problems noted. Social History Social History Alcohol intake: never Smoking Status: Smoker, status unknown Advance Directives: Yes Advance Directives Information Provided: Yes Advance Directives on File: No
[2020-11-21] MEDS: 0.9 % Sodium Chloride 500 ML IV (11:06)
[2020-11-21] MEDS: ondansetron HCL 4 MG/2 ML VIAL IVPUSH (11:06)
[2020-11-21] MEDS: HYDROmorphone HCl 0.5 MG/0.5 ML SYRINGE IVPUSH (11:07)
[2020-11-21 11:27] LABS: Basophils Percent Auto 0.4 % (0-2); Eosinophils Absolute Auto 0.2 X10*3/uL (0.0-0.4); Eosinophils Percent Auto 3.2 % (0-4); Hematocrit 36.2 % (42-52); Hemoglobin 11.3 g/dl (14.0-18.0); Imm Gran Abs Auto 0.02 X10*3/uL (0.00-0.03); Imm Gran Pct Auto 0.4 % (0.0-0.4); Lymphocytes Absolute Auto 0.7 X10*3/uL (1.2-4.9); Lymphocytes Percent Auto 12.4 % (20-40); MANUAL DIFF FLAG SCAN; Mean Corpuscular HGB Conc 31.2 g/dl (31.0-36.0); Mean Corpuscular Hemoglobin 24.4 pg (27.0-33.0); Mean Platelet Volume 9.8 fL (9.4-12.4); Monocytes Absolute Auto 0.5 X10*3/uL (0.1-1.2); Monocytes Percent Auto 8.6 % (2-11); Neutrophils Absolute Auto 3.9 X10*3/uL (2.0-8.3); Platelet Count 162 X10*3/uL (160-400); Red Blood Count 4.64 X10*6/uL (4.60-5.80); Red Cell Distribution Width 17.8 % (11.0-16.0); SCAN SMEAR FLAG 1; White Blood Count 5.3 X10*3/uL (4.8-10.8)
[2020-11-21 11:32] LABS: INTERNATIONAL NORM RATIO 1.1 (0.9-1.1); Prothrombin Time 13.3 SEC (10.8-13.0)
[2020-11-21 11:35] LABS: Partial Thromboplastin Time 30.9 SEC (24.1-38.0)
[2020-11-21 11:38] LABS: Ammonia 36 umol/L (13-55)
[2020-11-21 11:39] LABS: Lactic Acid 1.7 mmol/L (0.5-2.0)
[2020-11-21 11:47] LABS: Alanine Aminotransferase 78 U/L (0-40); Albumin Level 4.3 g/dL (3.5-5.0); Alkaline Phosphatase 127 U/L (39-117); Anion Gap 14 (12-20); Aspartate Amino Transferase 54 U/L (5-37); Bilirubin Direct 0.5 mg/dL (0.0-0.5); Bilirubin Total 0.9 mg/dL (0.0-1.0); Blood Urea Nitrogen 15 mg/dL (9-16); Calcium 9.2 mg/dL (8.4-10.2); Carbon Dioxide 26 mmol/L (22-29); Chloride 102 mmol/L (96-108); Creatinine Clr Calc Pharmacy 103.2; Estimated Glomerular Filt Rate > 60; Glucose Random 114 mg/dL (60-115); Potassium 4.2 mmol/L (3.3-5.1); Sodium 138 mmol/L (135-145); Total Protein 7.9 g/dL (6.5-8.0)
[2020-11-21 11:48] LABS: COVID-19 Test Negative (Negative)
[2020-11-21 11:49] LABS: Lipase 12 U/L (8-78)
[2020-11-21 12:09] VITALS: BP 140/97; PULSE 70; RESP 18; O2SAT 97
[2020-11-21 12:55] LABS: SLIDE REVIEW VERIFIED
[2020-11-21] MEDS: iohexoL 350 MG/ML 100 ML INFUS..BTL IV (13:11)
[2020-11-21] MEDS: oxyCODONE HCl Immed Release 5 MG TABLET 10 MG PO (13:14)
[2020-11-21 14:59] VITALS: BP 120/75; PULSE 68; RESP 18; O2SAT 94
== END 2020-11-21 16:57 | disposition home or self-care (01) ==
PROVIDERS: Emergency Provider Emergency Medicine; PCP Internal Medicine
DX: R16.0 Hepatomegaly, not elsewhere classified (principal); R10.11 Right upper quadrant pain; K74.60 Unspecified cirrhosis of liver; Z86.19 Personal history of other infectious and parasitic diseases; R11.2 Nausea with vomiting, unspecified; Z20.822 Contact with and (suspected) exposure to COVID-19; I10 Essential (primary) hypertension; D64.9 Anemia, unspecified
CPT/HCPCS: 36415; 74177; 76705; 80048; 80076; 82140; 83605; 83690; 83735; 85025; 85610; 85730; 87040; 87635; 93005; 96361; 96374; 96375; 99284; J1170; J2405; Q9967